=== PATIENT | female | born 1990 | race Hispanic/Latino ===

== ENCOUNTER 2017-09-17 10:57 | Outpatient (CLI) | payer OTHER ==
--- NOTE | 2017-09-17 13:53 | ULT ---
OBSTETRIC SONOGRAM: History: Third trimester gestation. evaluation. FINDINGS: Multiple transabdominal sonographic views of the gravid uterus shows single intrauterine gestation in cephalic presentation. Grade II placenta is anterior. Amniotic fluid is within normal limits. Advanc ed age limits evaluation. No gross intracranial abnormalities are apparent. Images of the face show subtle vertically oriented hypoechoic area through the upper lip. Laterality is unable to be distinguished. Four chamber heart shows motion at 143 beats/minute. spine and k idneys are intact as visualized. Three vessel cord shows a normal insertion. Measurements are as foll ows: BPD 34 weeks 3 days HC 34 weeks 4 days AC 34 weeks 4 days FL 35 weeks 5 days Estimated date of delivery based on today's sonogram is 817-18. Hadlock percentile equals 81%. IMPRESSION: 1. Single viable intrauterine gestation with estimated gestational age based on today's sonogram of 3 4 weeks 4 days. 2. Sonographic concern for lip abnormality, possibly an incomplete fusion defect. Please consider deyanira se sonographic follow up limited exam with particular attention to the lip. High risk maternal consultation should also be considered for potentially a high level sonographic evaluation. POS: [facility]ONT[facility]
== END 2017-09-17 10:58 | disposition home or self-care (01) ==
LOC: SCSULT 10:57
PROVIDERS: ATTEND Nurse Practitioner
DX: Z34.81 Encounter for supervision of other normal pregnancy, first trimester (principal)
CPT/HCPCS: 76805